=== PATIENT | male | born 1990 | race Caucasian/White ===

== ENCOUNTER 2018-01-08 19:21 | Emergency (ER) | payer BC ==
[2018-01-08 19:52] VITALS: BMI 28.0
--- NOTE | 2018-01-08 20:16 | PDOC ---
History of Present Illness - General Chief Complaint: Pain Stated Complaint: PAIN Time Seen by Provider: 01/08/18 20:12 - History of Present Illness Initial Comments: 01/08/18 20:15 27 yo M with no significant pmh who p/w abdominal pain. Patient reports acute onset of diffuse, crampy, intermittent abdominal pain with no identifiable triggers or alleviators. Home PO Sanjana seltzer with no improvement. Also reports 4 episodes of non bilious, non bloody emesis. Decreased PO intake. Two normal bowel movements with no BPR. Patient states that he recently went to gym yesterday evening and abdomen slightly sore from physical activity. Denies abdominal trauma. Denies F/C, CP, SOB, diarrhea, constipation, urinary complaints, weakness, lightheadedness, sensory changes. PMHx: as noted above. Denies h/o surgery. ROS: as noted above SHx: Social Etoh. Denies tobacco use, or IVDA. Past History - Past Medical History Allergies/Adverse Reactions: Allergies Allergy/AdvReac Type Severity Reaction Status Date / Time No Known Allergies Allergy Verified 01/08/18 19:44 COPD: No - Suicide/Smoking/Psychosocial Hx Smoking History: Never smoked Review of Systems - Review of Systems Comments:: 01/08/18 20:15 GENERAL/CONSTITUTIONAL: No fever or chills. No weakness. HEAD, EYES, EARS, NOSE AND THROAT: No change in vision. No ear pain or discharge. No sore throat. CARDIOVASCULAR: No chest pain or shortness of breath RESPIRATORY: No cough, wheezing, or hemoptysis. GASTROINTESTINAL: + Abdominal pain, nausea, vomiting. No diarrhea or constipation. GENITOURINARY: No dysuria, frequency, or change in urination. MUSCULOSKELETAL: No joint or muscle swelling or pain. No neck or back pain. SKIN: No rash NEUROLOGIC: No headache, vertigo, loss of consciousness, or change in strength/ sensation. ENDOCRINE: No increased thirst. No abnormal weight change HEMATOLOGIC/LYMPHATIC: No anemia, easy bleeding, or history of blood clots. ALLERGIC/IMMUNOLOGIC: No hives or skin allergy. *Physical Exam - Vital Signs Last Vital Signs Temp Pulse Resp BP Pulse Ox 98.1 F 108 H 18 138/97 100 01/08/18 19:44 01/08/18 19:44 01/08/18 19:44 01/08/18 19:44 01/08/18 19:44 - Physical Exam Comments: 01/08/18 20:15 GENERAL: Awake, alert, and fully oriented, in no acute distress HEAD: No signs of trauma, normocephalic, atraumatic EYES: PERRLA, EOMI, sclera anicteric, conjunctiva clear ENT: Hearing grossly normal, nares patent, oropharynx clear without exudates. Moist mucosa NECK: Normal ROM, supple, no lymphadenopathy, JVD, or masses LUNGS: No distress, speaks full sentences, clear to auscultation bilaterally HEART: Regular rate and rhythm, normal S1 and S2, no murmurs, rubs or gallops, peripheral pulses normal and equal bilaterally. ABDOMEN: Soft, diffuse ttp, normoactive bowel sounds. No guarding, no rebound. No masses. Neg CVA or suprapubic ttp. EXTREMITIES : Normal inspection, Normal range of motion, no edema. No clubbing or cyanosis. NEUROLOGICAL: Cranial nerves II through XII grossly intact. Normal speech, normal gait, no focal sensorimotor deficits SKIN: Warm, Dry, normal turgor, no rashes or lesions noted ED Treatment Course - LABORATORY CBC & Chemistry Diagram: 01/08/18 21:04 01/08/18 21:04 Medical Decision Making - Medical Decision Making 01/08/18 20:59 27 yo M with no significant pmh who p/w abdominal pain, and nausea and vomiting. VSS, AF. R/o appendicitis. Probable gastroenteritis vs. colitis (less likely). Differential also includes cystitis, urolithiasis. Currently does not endorse pain or nausea. ED Course: NS 1 L WBC: 17.9 01/08/18 22:09 CMP: Unremarkable UA: Neg Patient signed out to night team. VSS. *DC/Admit/Observation/Transfer - Referrals Referrals: Edwardo Avila MD [Primary Care Provider] - - Patient Instructions Additional Instructions: Please return to the emergency department with any new or worsening symptoms or concerns. Please follow up with your primary care physician within 72 hours. - Post Discharge Activity - Attestations Physician Attestion: 01/08/18 20:16 I attest to the information provided in this note.
[2018-01-08] MEDS ORDERED: SODIUM CHLORIDE 1,000 ML IV STA (20:55)
[2018-01-08 21:23] LABS: BASO % 0.3 % (0-2.0); HEMATOCRIT 45.4 % (35.4-49); HEMOGLOBIN 15.2 GM/dL (11.7-16.9); LYMPH % 12.2 % (8-40); MCH 27.8 pg (25.7-33.7); MCHC 33.5 g/dl (32.0-35.9); MEAN CELL VOLUME 82.9 fl (80-96); MEAN PLT VOLUME 7.3 fl (7.5-11.1); MONO % 4.8 % (3.8-10.2); NEUT % 82.7 % (42.8-82.8); PLATELET COUNT 402 K/MM3 (134-434); RBC 5.48 M/mm3 (4.00-5.60); RDW 14.1 % (11.9-15.9); WHITE BLOOD COUNT 17.9 K/mm3 (4.0-10.0)
[2018-01-08 21:26] LABS: URINE APPEARANCE CLEAR; URINE BILIRUBIN NEGATIVE (<2.0 mg/dL); URINE BLOOD NEGATIVE (NEGATIVE); URINE COLOR YELLOW; URINE GLUCOSE (UA) NEGATIVE (NEGATIVE); URINE KETONE TRACE (NEGATIVE); URINE LEUK ESTERASE NEGATIVE (NEGATIVE); URINE NITRITE NEGATIVE (NEGATIVE); URINE PROTEIN NEGATIVE (NEGATIVE); URINE UROBILINOGEN NEGATIVE mg/dL (0.2-1.0)
[2018-01-08 21:55] LABS: ALBUMIN 4.2 g/dl (3.4-5.0); ANION GAP 8 (8-16); BLOOD UREA NITROGEN 10 mg/dL (7-18); CALCIUM 9.3 mg/dL (8.5-10.1); CHLORIDE 100 mmol/L (98-107); CO2 30 mmol/L (21-32); GLUCOSE,RANDOM 111 mg/dL (74-106); POTASSIUM 4.1 mmol/L (3.5-5.1); SGOT/AST 25 U/L (15-37); SGPT/ALT 28 U/L (12-78); SODIUM 138 mmol/L (136-145)
[2018-01-08 21:57] LABS: ALK PHOS 89 U/L (45-117); BILIRUBIN,TOTAL 0.6 mg/dL (0.2-1.0)
--- NOTE | 2018-01-08 22:41 | PDOC ---
Attending Attestation - Medical Decision Making 01/08/18 23:22 Imaging: Abdomen and Pelvis CT with contrast Reported by: Dr. Vallejo Impression: Free pelvic fluid otherwise normal CT scan. <Evelin Alarcon - Last Filed: 01/08/18 23:22> - Resident Resident Name: Jason Mott - ED Attending Attestation I have performed the following: I have examined & evaluated the patient, The case was reviewed & discussed with the resident, I agree w/resident's findings & plan, Exceptions are as noted - HPI HPI: 01/08/18 22:41 27-year-old male presents with right lower quadrant pain, nausea and vomiting - Physicial Exam PE: 01/08/18 22:41 wnwd 27 yo male head ncat neck supple lungs cta b/l cvs [id number] abd rlq tenderness but no rebound,no guarding musculoskeketal no cva tenderness ext no e/c/c neuro axox3,ambulatory skin warm and dry psych appropriate - Medical Decision Making 01/08/18 22:43 labs reviewed, there is leukocytosis ,chemistries unremarkable 01/08/18 23:58 CT SCAN ABD/PEL: NO APPENDICITIS,NO SBO,NO COLITIS <Natalya Duncan - Last Filed: 01/08/18 23:59>
--- NOTE | 2018-01-09 00:06 | PDOC ---
*Physical Exam - Vital Signs Last Vital Signs Temp Pulse Resp BP Pulse Ox 98.1 F 108 H 18 138/97 100 01/08/18 19:44 01/08/18 19:44 01/08/18 19:44 01/08/18 19:44 01/08/18 19:44 ED Treatment Course - LABORATORY CBC & Chemistry Diagram: 01/08/18 21:04 01/08/18 21:04 - ADDITIONAL ORDERS Additional order review: Laboratory Results 01/08/18 01/08/18 01/08/18 21:04 21:04 21:04 Sodium 138 Potassium 4.1 Chloride 100 Carbon Dioxide 30 Anion Gap 8 BUN 10 Creatinine 1.0 Creat Clearance w eGFR > 60 Random Glucose 111 H Calcium 9.3 Total Bilirubin 0.6 AST 25 ALT 28 Alkaline Phosphatase 89 Total Protein 8.0 Albumin 4.2 Lipase 60 L Urine Color Yellow Urine Appearance Clear Urine pH 6.0 Ur Specific [place] 1.026 Urine Protein Negative Urine Glucose (UA) Negative Urine Ketones Trace H Urine Blood Negative Urine Nitrite Negative Urine Bilirubin Negative Urine Urobilinogen Negative Ur Leukocyte Esterase Negative 01/08/18 21:04 RBC 5.48 MCV 82.9 MCHC 33.5 RDW 14.1 MPV 7.3 L Neutrophils % 82.7 Lymphocytes % 12.2 Monocytes % 4.8 Eosinophils % 0.0 Basophils % 0.3 - Medications Given in the ED: ED Medications Discontinued Medications Generic Name Dose Route Start Last Admin Trade Name Freq PRN Reason Stop Dose Admin Sodium Chloride 1,000 mls @ 1,000 mls/hr 01/08/18 20:55 01/08/18 21:10 Normal Saline - IV 01/08/18 21:54 1,000 mls/hr ASDIR STA Administration Medical Decision Making - Medical Decision Making 01/09/18 00:05 CAT scan of abdomen and pelvis with contrast showed no evidence of acute pathology. Lung bases were clear. Liver, spleen, pancreas, adrenal glands and kidneys demonstrated no abnormalities. Is no evidence of intra-abdominal or retroperitoneal lymphadenopathy, or fluid collections. No evidence of pneumoperitoneum, no bowel obstruction and no intra-abdominal abscess. There is no CAT scan evidence of appendicitis or diverticulitis. Is no evidence of pelvic masses or lymphadenopathy. The pelvis demonstrated a small amount of free fluid within the pelvis, unknown etiology. Patient has no pelvis pain and hasn't vomited in 7 hours. Impression gastritis. Plan discharge home *DC/Admit/Observation/Transfer Diagnosis at time of Disposition: Nausea & vomiting Qualifiers: Vomiting type: unspecified Vomiting Intractability: non-intractable Qualified Code(s): R11.2 - Nausea with vomiting, unspecified - Discharge Dispostion Disposition: HOME Condition at time of disposition: Stable - Referrals Referrals: Edwardo Avila MD [Primary Care Provider] - - Patient Instructions Printed Discharge Instructions: DI for Vomiting -- Adult Additional Instructions: Please return to the emergency department with any new or worsening symptoms or concerns. Please follow up with your primary care physician within 72 hours. - Post Discharge Activity
[2018-01-09 00:27] VITALS: BP 138/96; PULSE 98; TEMP 98
== END 2018-01-09 00:27 | disposition home or self-care (01) ==
LOC: JER 19:21
PROC: 3E0337Z Introduction of Electrolytic and Water Balance Substance into Peripheral Vein, Percutaneous Approach (ICD-10-PCS; principal; 2018-01-08)
DX: R11.2 Nausea with vomiting, unspecified (principal)
CPT/HCPCS: 36415; 74177-TC; 80053; 81003; 83690; 85025; 99282-25; J7030